=== PATIENT | male | born 1940 | race Caucasian/White ===

== ENCOUNTER → 2018-12-16 | Outpatient (CLI) | payer OTHER | LOC: M.ULTRA 14:30 | DX: I65.23 Occlusion and stenosis of bilateral carotid arteries (principal) ==

== ENCOUNTER → 2019-12-05 | Outpatient (CLI) | payer MEDICARE ==
--- NOTE | 2019-12-05 17:26 | CARDNUC ---
[place] [address] CARDIAC NUCLEAR IMAGING REPORT Name: JAVIER SANVELL Room: [facility]#: [id number] Admission: 12/05/19 Attend Phys: Ekta Chavez, Discharge: Date of : 40 Date of Service: 12/05/19 1726 Report #: [id number] THIS REPORT FOR: cc: Terry Shore MD, Douglas James MD Liston, Michael J. MD [facility] ~ APPROVED REPORT Study performed: 12/05/2019 15:06:54 Exam: Nuclear Stress Test Indication: Chest pain, arm pain Patient Location: Out-Patient Stress Tech: Jessica Powell Stress Nurse: Jeana Arechiga RN Ht: 5 ft 7 in Wt: 181 lbs BSA: 1.94 m2 BMI: 28.34 Medical History Medical History: Carotid artery disease, HTN, Hyperlipidemia Medications: asa, hytrin, lisinopril Allergies: morphine Cardiac Risk Factors: Age, HTN, Hyperlipidemia, Tobacco History (Former) Exercise History: Indeterminate Stress Test Details Stress Test: Pharmacologic stress testing performed using 0.4 mg of regadenoson per 5 mL given IV over 10 seconds. Reason for pharmacologic stress test: physical limitation. HR Resting HR: 60 bpm Max Heart Rate (APMHR): 141 bpm Max HR Achieved: 76 bpm Target HR (85% APMHR): 119 bpm % of APMHR: 53 Recovery HR: 75 bpm BP Resting BP: 143/91 mmHg Max BP: 131/74 [place] [address] CARDIAC NUCLEAR IMAGING REPORT Name: JAVIER SAN Room: [facility]#: [id number] Admission: 12/05/19 Attend Phys: Ekta Chavez, Discharge: Date of : 40 Date of Service: 12/05/19 1726 Report #: [id number] Resting ECG: Sinus Rhythm Stress ECG: Sinus Rhythm ST Change: None Arrhythmia: None Recovery ECG: Sinus Rhythm Recovery ST Change: None Recovery Arrhythmia: None Clinical Reason for Termination: Completed protocol Exercise duration: 0 min sec Exercise capacity: 1 METs The patient tolerated Lexiscan infusion without significant cardiac symptoms. Nurse Comments pt unable to walk on treadmill due to hip stiffness Stress ECG Conclusion The baseline twelve-lead EKG shows sinus rhythm with no significant ST segment or T wave abnormality. EKGs obtained during and post Lexiscan infusion show sinus rhythm with no significant ST segment changes when compared to baseline. There were no stress-induced arrhythmias. NM EXAM: Myocardial Perfusion REST/STRESS Resting Data Rest SPECT myocardial perfusion imaging was performed in supine position 30 minutes following the intravenous injection of 9.4 mCi of Tc-99m Sestamibi. Time of rest injection: 13:30 The images were gated to evaluate regional wall motion and calculate left ventricular ejection fraction. Administration Route: IV Administration Site: Right Wrist Pharmacologic Stress Pharmacologic stress test was performed by injecting Regadenoson 0.4 mg IV push followed by the intravenous injection of 28.0 mCi of Tc-99m Sestamibi. Time of stress injection: 15:05 Administration Route: IV Administration Site: Right Wrist Heart Rate at time of stress injection: 76 bpm. Gated Stress SPECT was performed 45 [place] [address] CARDIAC NUCLEAR IMAGING REPORT Name: JAVIER SAN Room: [facility]#: [id number] Admission: 12/05/19 Attend Phys: Ekta Chavez, Discharge: Date of : 40 Date of Service: 12/05/19 1726 Report #: [id number] injection. The images were gated to evaluate regional wall motion and calculate left ventricular ejection fraction. Prone imaging was performed. Study Quality Study: Good Artifact: Mild Diaphragmatic artifact Study Data At rest, the left ventricular ejection fraction was 54%.. Post stress, the left ventricular ejection was 55%.. TID = 1.01. Perfusion Perfusion images obtained in the supine position at rest and post Lexiscan stress show mild photopenia of the inferior wall that resolves completely with post-rest imaging suggesting diaphragmatic attenuation artifact. There were no defects to suggest infarct or ischemia. Wall Motion Normal left ventricular wall motion. Nuclear Conclusion ECG Findings: negative for ischemia Clinical Findings: negative for ischemia Nuclear Findings: negative for ischemia Exercise Capacity: not assessed Left Ventricular Function: normal Risk Study: low Perfusion images show no defect to suggest infarct or ischemia. Left ventricular systolic function appears normal on gated studies. This is a low risk study. <Conclusion> The baseline twelve-lead EKG shows sinus rhythm with no significant ST segment or T wave abnormality. EKGs obtained during and post Lexiscan infusion show sinus rhythm with no significant ST segment changes when compared to baseline. There were no stress-induced arrhythmias. <ELECTRONICALLY SIGNED> By: Heraclio Ma MD, FACC 12/05/191725 25 25 Heraclio Ma MD, FACC /INF
== END ==
LOC: M.NUC 11-27 16:38
PROVIDERS: ATTEND Nurse Practitioner
DX: R07.89 Other chest pain (principal); I25.10 Atherosclerotic heart disease of native coronary artery without angina pectoris; I10 Essential (primary) hypertension; E78.5 Hyperlipidemia, unspecified